=== PATIENT | male | born 2000 | race Caucasian/White ===

== ENCOUNTER 2020-12-29 19:12 | Emergency (ER) | payer SELFPAY ==
[2020-12-29 19:18] VITALS: BP 155/77; PULSE 89; RESP 14; TEMP 37.4; O2SAT 98; BMI 41.3
--- NOTE | 2020-12-29 19:26 | ED.BACK ---
HPI - Back Pain/Injury General Chief Complaint: Back Pain/Injury Stated Complaint: Thinks Kidney Stones Time Seen by Provider: 12/29/20 19:25 Source: patient Limitations: no limitations History of Present Illness HPI Narrative: 20-year-old male nonsmoker with noncontributory medical problems presents with his significant other and a chief complaint of right lower back pain for the past few months. He states it has been slightly worse today. He denies any memorable injury but states he frequently lifts 50 lb bags at work. His pain is worse when he moves and improves with rest. He states that it is in his right lower lumbar region and radiates down into his right buttock. He denies any numbness, tingling or weakness. He denies any trouble with control of bowel or bladder. He denies footdrop. He has had no fever or chills, does not use blood thinners and has no history of IV drug abuse. He denies urinary complaints such as dysuria, frequency, urgency or hematuria. He denies nausea, vomiting or diarrhea Related Data Previous Rx's Medication Instructions Recorded cyclobenzaprine 10 mg tablet 10 mg PO TID PRN #14 tab 12/29/20 hydrocodone 5 mg-acetaminophen 325 1 tab PO Q4-6H PRN #10 tab 12/29/20 mg tablet ketorolac 10 mg tablet 10 mg PO Q6H PRN #14 tab 12/29/20 methylprednisolone 4 mg tablets in See Rx Instructions .ROUTE 12/29/20 a dose pack (Medrol ([place])) .COMPLEX #21 ea Allergies Allergy/AdvReac Type Severity Reaction Status Date / Time No Known Drug Allergies Allergy Verified 12/29/20 19:23 Review of Systems Review of Systems Narrative: GENERAL: Denies chills, fatigue, malaise, fever, sweats. HEENT: Denies sinus pain, ear pain, sore throat, difficulty swallowing, dizziness. RESPIRATORY: Denies dyspnea, cough, wheezing, hemoptysis, sputum. CARDIOVASCULAR: Denies chest pain, palpitations, orthopnea, edema, GASTROINTESTINAL: Denies nausea, vomiting, abdominal pain, diarrhea, constipation, melena. : Denies dysuria, frequency, incontinence, hematuria, urinary retention. MUSCULOSKELETAL: See HPI SKIN: Denies rash, skin lesions, or other NEUROLOGIC: Denies weakness, headache, numbness, change in speech, confusion, seizures, incoordination. PSYCHIATRIC: No concerning psychosocial issues. 12 point review of systems is negative except for those stated above Patient History Social History Smoking Status: Unknown if ever smoked Smoking Status: Unknown if ever smoked alcohol intake frequency: holidays/special occasions only Substance Use Type: marijuana Exam Narrative Exam Narrative: GENERAL: [20] year old patient appears stated age. Well-developed patient, in mild distress. HEAD: Atraumatic. Normocephalic. EYES: Pupils equal round and reactive. Extraocular motions intact. No scleral icterus. No injection or drainage. ENT: Nose without bleeding, purulent drainage. Throat without erythema, tonsillar hypertrophy or exudate. Airway patent. NECK: Trachea midline. Non tender CARDIOVASCULAR: Regular rate and rhythm without murmurs, gallops, or rubs. RESPIRATORY: Clear to auscultation. Breath sounds equal bilaterally. No wheezes, rales, or rhonchi. GASTROINTESTINAL: Abdomen soft, non-tender, nondistended. EXTREMITIES: No edema or joint tenderness. BACK: glacing machine tender but free of any obvious external abnormalities. Patient exam notes decreased range of motion and muscle spasm, but no CVA tenderness, or vertebral point tenderness. There are no symptoms of cauda equina such as saddle anesthesia, and decreased reflexes, decreased sensation or strength. NEURO: AOx3. SKIN: No rash or erythema of visible areas Initial Vital Signs Initial Vital Signs: Vital Signs Temperature 99.3 F 12/29/20 19:18 Pulse Rate 89 12/29/20 19:18 Respiratory Rate 14 12/29/20 19:18 Blood Pressure 155/77 H 12/29/20 19:18 Pulse Oximetry 98 12/29/20 19:18 Course Vital Signs Vital signs: Vital Signs - 8 hr 12/29/20 19:18 Temperature 99.3 F Pulse Rate 89 Respiratory Rate 14 Blood Pressure 155/77 H Pulse Oximetry 98 MDM - Back Pain/Injury Lab Data Labs: Urine Dip Bedside Urine Glucose Negative Bedside Urine Bilirubin - Negative Bedside Urine Ketone - Negative Urine Specific [place] 1.025 Bedside Urine Occult Blood - Negative Bedside Urine pH 6.0 Bedside Urine Protein - Negative Bedside Urine Urobilinogen - Negative Bedside Urine Nitrite - Negative Bedside Urine Leukocytes - Negative Esterase MDM Narrative Medical decision making narrative: Multiple etiologies of back pain considered including; Epidural abscess, cauda equina, mass occupying lesion, and other considered, however no red flags indicative of neuro surgical emergency are present. Kidney stone and UTI considered, however urine is clean, pain radiates but into buttock and not around flank or into groin. Patient has no urinary complaints. Return precautions given and questions answered to his apparent satisfaction Discharge Plan Departure Patient Disposition: Home Clinical Impression: Lumbar back pain Instructions: DI for Back Strain or Sprain Activity Restrictions/Additional Instructions: *You have been diagnosed with [right-sided lumbar pain with mild radiculopathy] *What to do: *Please continue to take your regular medications as directed. [x ] New medication prescriptions sent to your pharmacy: [[facility] in [place]] [ ] New medication written as a paper prescription *If you do not have a primary care provider please contact the [facility] line at [phone]. They will ask some questions about your medical history and help get you set up with a doctor in the community. *Return to Emergency Department if you should have any new, worsening or concerning symptoms, such as [fever greater than 101 F, shaking chills, worsening pain, loss of control of bowel or bladder, weakness of your lower extremity, or other bothersome symptoms You have been prescribed narcotic medications. While on these medications you cannot drive or operate heavy machinery. Additionally you cannot sign legal documents or perform any duties such as this. 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 Please understand that we cannot provide further refills of narcotics or controlled substances through the ED and your pain management will need to be through your Primary Care Provider Prescriptions: New cyclobenzaprine 10 mg tablet 10 mg PO TID PRN (Reason: muscle spasm) Qty: 14 RF: 0 hydrocodone-acetaminophen 5-325 mg tablet 1 tab PO Q4-6H PRN (Reason: pain) Qty: 10 RF: 0 ketorolac 10 mg tablet 10 mg PO Q6H PRN (Reason: pain) Qty: 14 RF: 0 methylprednisolone [Medrol ([place])] 4 mg tablets,dose pack See Rx Instructions .ROUTE .COMPLEX Qty: 21 RF: 0 Referrals: Merged With [facility] [Outside]
== END 2020-12-29 19:53 | disposition home or self-care (01) ==
PROVIDERS: Emergency Provider Emergency Medicine
DX: M54.5 Low back pain (principal)
CPT/HCPCS: 81003; 99281